=== PATIENT | female | born 1960 | race African-American/Black ===

== ENCOUNTER 2019-08-20 10:25 | Inpatient (IN) ==
[2019-08-20 10:38] LABS: ALLEN TEST YES; BE -8.8 mmoll (-3.0-3.0); BLOOD TYPE ARTERIAL; HCO3-(ACT) 17.8 mmoll (20.0-26.0); METHB 0.8 % (0.0-1.5); O2(CT) 19.1 mL/dL (15.0-23.0); PCO2(98.6) 48 mmHg (35-45); PO2(98.6) 84 mmHg (60-100); SAMPLE BLOOD; SAO2 96.5 % (95.0-100.0); THB 15.2 g/dL (11.5-17.4); pH(98.6) 7.21 (7.35-7.45)
[2019-08-20 10:41] LABS: MODALITY VENTIMASK
[2019-08-20 10:42] LABS: O2HB 89.3 % (95.0-99.0)
[2019-08-20] MEDS ORDERED: ATIVAN ONE (10:42)
[2019-08-20] MEDS ORDERED: ATIVAN IV ONE ×2 (10:42→10:51)
--- NOTE | 2019-08-20 10:51 | EKG Report ---
Test Performed on : 08/20/2019 10:34:20 AM Test Reason : sob Blood Pressure : / mmHG Vent. Rate : 126 BPM Atrial Rate : 126 BPM P-R Int : 150 ms QRS Dur : 074 ms QT Int : 314 ms P-R-T Axes : 074 -04 063 degrees QTc Int : 454 ms Sinus tachycardia. Possible Left atrial enlargement Anteroseptal infarct , age undetermined Abnormal ECG No previous ECGs available Unconfirmed Result
--- NOTE | 2019-08-20 11:14 | Diag Imaging Result Doc PS360 ---
EXAM: CHEST-1 VIEW INDICATION: sob TECHNIQUE: One view COMPARISON: None. FINDINGS: There are bilateral interstitial infiltrates suggesting pulmonary edema. There is a more dense airspace infiltrate at the right lung base. Superimposed pneumonia here cannot be excluded. There is no significant pleural fluid collection or pneumothorax. There is cardiomegaly and pulmonary venous congestion. IMPRESSION: Pulmonary edema and pulmonary venous congestion. Superimposed pneumonia at the right lung base is possible in the right clinical scenario. Electronically signed by David Hollis 08/20/2019 11:11 AM
[2019-08-20] MEDS ORDERED: XOPENEX NEB ONE (11:22)
[2019-08-20] MEDS ORDERED: LABETALOL IV ONE ×2 (11:28→13:36)
[2019-08-20 12:14] LABS: BASO# 0.12 X1000 (0.0-0.2); BASO% 0.7 % (0.0-0.8); EOS# 1.28 X1000 (0.0-0.7); EOS% 7.1 % (0.0-10.0); HEMATOCRIT 50.4 % (37.0-47.0); IMM GRAN# 0.08 X1000 (0.0-0.04); IMM GRAN% 0.4 % (0.0-0.5); LYMPH# 5.37 X1000 (1.2-3.4); LYMPH% 29.8 % (20.5-51.1); MCH 30.5 PG (27-31); MCHC 31.7 g/dL (33-37); MCV 96.2 FL (81-99); MONO# 1.24 X1000 (0.11-0.59); MONO% 6.9 % (1.7-9.3); MPV 11.8 FL (7.4-10.4); NEUT# 9.91 X1000 (1.4-6.5); NEUT% 55.1 % (42.2-75.2); PLT 285 X1000 (130-400); RBC 5.24 XMIL (4.2-5.4); RDW 14.1 % (11.5-14.5)
[2019-08-20 12:27] LABS: INR 0.88
[2019-08-20 12:28] LABS: PTT 28.6 Seconds (22.3-41.8)
[2019-08-20 12:33] LABS: URINE SOURCE CATH
[2019-08-20 12:38] LABS: BILIRUBIN URINE NEGATIVE (NEGATIVE); BLOOD URINE SMALL (NEGATIVE); COLOR YELLOW; GLUCOSE URINE 100 mg/dL (NEGATIVE); KETONE URINE NEGATIVE (NEGATIVE); LEUKOCYTES URINE LARGE (NEGATIVE); NITRITE URINE NEGATIVE (NEGATIVE); PROTEIN URINE 100 mg/dL (NEGATIVE); SP GRAVITY URINE 1.008; TURBIDITY URINE HAZY (CLEAR); UR EPITHELIAL CELLS <10 /HPF (<10); URINE BACTERIA NEGATIVE /HPF; URINE RBC <10 /HPF (<10); URINE WBC TNTC /HPF (<10); UROBILINOGEN URINE NORMAL (NORMAL)
[2019-08-20 12:59] LABS: UR AMPHETAMINES QUAL NONE DETECTED (NONE DETECT); UR BARBITUATES QUAL NONE DETECTED (NONE DETECT); UR BENZODIAZEPIN QUAL NONE DETECTED (NONE DETECT); UR CANNABINOIDS QUAL NONE DETECTED (NONE DETECT); UR COCAINE QUAL PRESUMPTIVE POSITIVE (NONE DETECT); UR METHADONE QUAL NONE DETECTED (NONE DETECT); UR OPIATES QUAL NONE DETECTED (NONE DETECT); UR OXYCODONE QUAL NONE DETECTED (NONE DETECT); UR PCP QUAL NONE DETECTED (NONE DETECT)
[2019-08-20 12:59] LABS: ALB/GLOB RATIO 1.2; ALBUMIN 5.1 g/dL (3.5-5.0); CALCIUM 10.2 mg/dL (8.8-10.2); CREATININE 8.2 mg/dL (0.5-0.9); POTASSIUM 6.1 mmol/L (3.5-5.1); TOTAL BILIRUBIN 0.43 mg/dL (0.20-1.00); TOTAL PROTEIN 9.3 g/dL (6.3-8.3)
[2019-08-20] MEDS ORDERED: NITROGLYCERIN TOP ONE ×2 (13:36→23:47)
[2019-08-20] MEDS ORDERED: SODIUM BICARBONATE 8.4% IV ONE (13:42)
[2019-08-20] MEDS ORDERED: D50W SYRINGE IV ONE (13:42)
[2019-08-20] MEDS ORDERED: HUMULIN R IV ONE (13:42)
[2019-08-20] MEDS ORDERED: KAYEXALATE PO ONE (13:42)
[2019-08-20] MEDS ORDERED: CALCIUM GLUCONATE 1 GM in NS 50 ML IV ONE (13:43)
[2019-08-20] MEDS ORDERED: LEVAQUIN 500 MG/D5W 500 MG/100 ML IVPB IV ONE (13:50)
--- NOTE | 2019-08-20 13:59 | PROVIDER DOCUMENTATION ---
This chart was entered by Arline Thornton Scribe, acting as scribe for Sebas Frank MD. 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 Pt does reports she had dialysis on Tuesday. Pt is poor hx & VERY anxious upon exam. Quality of Pain: reports: tightness Severity in ED: reports: moderate, severe Onset/Duration: reports: just prior to arrival Timing: reports: still present Cough Quality/Degree: reports: mild Current Respiratory Medication Therapy: Initiated see nurses note Associated Symptoms: reports: cough, hyperventilating, lightheadedness, shortness of breath, short of breath, wheezing Similar Symptoms Previously?: No Recently seen or treated by another doctor?: No Review of Systems - Adult - REVIEW OF SYSTEMS - ADULT Constitutional: reports: see HPI. denies: chills, fever, fatique Eyes: reports: no symptoms reported Ears, Nose, Mouth & Throat: reports: no symptoms reported Cardiovascular: reports: see HPI, irregular heart rate. denies: chest pain Respiratory: reports: see HPI, cough, shortness of breath, wheezing Gastrointestinal: reports: no symptoms reported Genitourinary: reports: no symptoms reported Musculoskeletal: reports: no symptoms reported Integumentary: reports: no symptoms reported Neurological: reports: see HPI, dizziness/vertigo Psychiatric: reports: no symptoms reported Endocrine: reports: no symptoms reported Hematologic/Lymphatic: reports: no symptoms reported Allergic/Immunologic: reports: no symptoms reported All Other Systems: Reviewed and Negative Past History - Adult - PAST MEDICAL HISTORY-ADULT Review of Records: reports: Nursing Assessment Review, Medications Reviewed, Social history reviewed & non-contributory. Major Childhood Illnesses: reports: denies history Cardiovascular: reports: denies history Respiratory: reports: denies history Gastrointestinal: reports: denies history Obstetrical/Gynecological: reports: denies history Genitourinary: reports: denies history Musculoskeletal: reports: denies history Neurological: reports: denies history Endocrine/Immune: reports: denies history Other Conditions: reports: denies history - IMMUNIZATION STATUS Childhood Immunizations: See Nurse Assessment Flu Vaccine: See Nurse Assessment - FAMILY HISTORY Family History: reviewed, not pertinent - SOCIAL HISTORY Substance Use: cocaine Physical Exam-General - PHYSICAL EXAM-ADULT Initial Vital Signs Reviewed: Yes - CONSTITUTIONAL General Appearance: alert, moderate distress, thin, anxious. negative: combative - EYES Eyes: PERRL/EOMI, pink conjunctivae. negative: photophobia - HEAD, EARS, NOSE, MOUTH & THROAT HENMT: normocephalic/atraumatic, moist mucous membranes. negative: angioedema - NECK Neck: supple, normal inspection - RESPIRATORY Respiratory: chest non-tender, accessory muscle use, crackles (fine on the right), retractions - CARDIOVASCULAR Cardiovascular: normal peripheral pulses, tachycardia. negative: bradycardia - GASTROINTESTINAL (ABDOMEN) Abdominal Exam: non tender, soft. negative: rebound - MUSCULOSKELETAL Extremity: normal inspection, normal capillary refill. negative: deformity - SKIN Integumentary: diaphoresis, other (fistula in left upper arm). negative: jaundice, rash - PSYCHIATRIC Psych/Mental Status: oriented x 3, anxious - HEART Score HEART Score: History: Moderately Suspicious HEART Score: ECG: Non-Specific Repolarization Disturbance/LBBB/PM HEART Score: Age: 45-65 Years HEART Score: Risk Factors for Atherosclerotic Disease: 1 or 2 Risk Factors HEART Score: Troponin: 1-3x Normal Limit Total HEART Score:: 5 Progress - PLAN OF CARE/RESULTS Progress/Plan/Lab Results: Vital Signs - 8 hr 08/20/19 10:45 08/20/19 11:39 Temperature 96.9 F L Pulse Rate 128 H 132 H Respiratory Rate 34 H 36 H Blood Pressure 286/182 252/138 O2 Sat by Pulse Oximetry 100 100 08/20/19 11:40 Influenza Screen - Final Nasopharyngeal Laboratory Results - last 24 hr 08/20/19 08/20/19 08/20/19 10:30 11:07 11:07 WBC 18.00 H RBC 5.24 Hgb 16.0 Hct 50.4 H MCV 96.2 MCH 30.5 MCHC 31.7 L RDW Std Deviation 14.1 Plt Count 285 MPV 11.8 H Immature Gran % (Auto) 0.4 Neut % (Auto) 55.1 Lymph % (Auto) 29.8 [place] % (Auto) 6.9 Eos % (Auto) 7.1 Baso % (Auto) 0.7 Immature Gran # (Auto) 0.08 H Neut # (Auto) 9.91 H Lymph # (Auto) 5.37 H [place] # (Auto) 1.24 H Eos # (Auto) 1.28 H Baso # (Auto) 0.12 PT INR PTT (Actin FS) Specimen Type ARTERIAL Sample Site R RADIAL pH 7.21 L pCO2 48 H pO2 84 HCO3 17.8 L Base Excess -8.8 L Oxyhemoglobin 89.3 L* ABG O2 Sat (Calculated) 19.1 ABG O2 Saturation 96.5 ABG Carboxyhemoglobin 6.70 H* ABG Methemoglobin 0.8 Diego Test YES A-a O2 Difference 141.0 Total Hemoglobin 15.2 Lactate 2.20 Liter Flow 7.0 Blood Gas Modality VENTIMASK FiO2 % 40.0 Sodium 140 Potassium 6.1 H* Chloride 101 Carbon Dioxide 18 L Anion Gap 21 BUN 47 H Creatinine 8.2 H Estimated GFR/1.73 m2 5 BUN/Creatinine Ratio 6 Glucose 144 H Calculated Osmolality 294 Calcium 10.2 Total Bilirubin 0.43 AST 65 H ALT 27 Alkaline Phosphatase 125 H Creatine Kinase Troponin T High Sens Qca-C-[id number] Pept Total Protein 9.3 H Albumin 5.1 H Globulin 4.2 Albumin/Globulin Ratio 1.2 Urine Source Urine Color Urine Turbidity Urine pH Ur Specific [place] Urine Protein Ur Glucose (Stick) Ur Ketones (Stick) Urine Blood Urine Nitrite Urine Bilirubin Urobilinogen Dipstick Urine Leukocytes Urine WBC (Auto) Urine RBC (Auto) U Epithel Cells (Auto) Urine Bacteria (Auto) Urine Opiates Screen Ur Oxycodone Screen Ur Methadone, Qual Ur Barbiturates Screen Ur Phencyclidine Scrn Ur Amphetamines Screen U Benzodiazepines Scrn Urine Cocaine Screen U Cannabinoids Screen 08/20/19 08/20/19 08/20/19 11:07 11:07 11:07 WBC RBC Hgb Hct MCV MCH MCHC RDW Std Deviation Plt Count MPV Immature Gran % (Auto) Neut % (Auto) Lymph % (Auto) [place] % (Auto) Eos % (Auto) Baso % (Auto) Immature Gran # (Auto) Neut # (Auto) Lymph # (Auto) [place] # (Auto) Eos # (Auto) Baso # (Auto) PT INR PTT (Actin FS) Specimen Type Sample Site pH pCO2 pO2 HCO3 Base Excess Oxyhemoglobin ABG O2 Sat (Calculated) ABG O2 Saturation ABG Carboxyhemoglobin ABG Methemoglobin Diego Test A-a O2 Difference Total Hemoglobin Lactate Liter Flow Blood Gas Modality FiO2 % Sodium Potassium Chloride Carbon Dioxide Anion Gap BUN Creatinine Estimated GFR/1.73 m2 BUN/Creatinine Ratio Glucose Calculated Osmolality Calcium Total Bilirubin AST ALT Alkaline Phosphatase Creatine Kinase 141 Troponin T High Sens 142 H* Sbx-X-Hjjriimveaq Pept > 68458 H Total Protein Albumin Globulin Albumin/Globulin Ratio Urine Source Urine Color Urine Turbidity Urine pH Ur Specific [place] Urine Protein Ur Glucose (Stick) Ur Ketones (Stick) Urine Blood Urine Nitrite Urine Bilirubin Urobilinogen Dipstick Urine Leukocytes Urine WBC (Auto) Urine RBC (Auto) U Epithel Cells (Auto) Urine Bacteria (Auto) Urine Opiates Screen Ur Oxycodone Screen Ur Methadone, Qual Ur Barbiturates Screen Ur Phencyclidine Scrn Ur Amphetamines Screen U Benzodiazepines Scrn Urine Cocaine Screen U Cannabinoids Screen 08/20/19 08/20/19 08/20/19 11:07 12:20 12:20 WBC RBC Hgb Hct MCV MCH MCHC RDW Std Deviation Plt Count MPV Immature Gran % (Auto) Neut % (Auto) Lymph % (Auto) [place] % (Auto) Eos % (Auto) Baso % (Auto) Immature Gran # (Auto) Neut # (Auto) Lymph # (Auto) [place] # (Auto) Eos # (Auto) Baso # (Auto) PT 12.0 INR 0.88 PTT (Actin FS) 28.6 Specimen Type Sample Site pH pCO2 pO2 HCO3 Base Excess Oxyhemoglobin ABG O2 Sat (Calculated) ABG O2 Saturation ABG Carboxyhemoglobin ABG Methemoglobin Diego Test A-a O2 Difference Total Hemoglobin Lactate Liter Flow Blood Gas Modality FiO2 % Sodium Potassium Chloride Carbon Dioxide Anion Gap BUN Creatinine Estimated GFR/1.73 m2 BUN/Creatinine Ratio Glucose Calculated Osmolality Calcium Total Bilirubin AST ALT Alkaline Phosphatase Creatine Kinase Troponin T High Sens [id number]-[id number] Pept Total Protein Albumin Globulin Albumin/Globulin Ratio Urine Source CATH Urine Color YELLOW Urine Turbidity HAZY Urine pH 8.0 Ur Specific [place] 1.008 Urine Protein 100 A Ur Glucose (Stick) 100 A Ur Ketones (Stick) NEGATIVE Urine Blood SMALL A Urine Nitrite NEGATIVE Urine Bilirubin NEGATIVE Urobilinogen Dipstick NORMAL Urine Leukocytes LARGE A Urine WBC (Auto) TNTC A Urine RBC (Auto) <10 U Epithel Cells (Auto) <10 Urine Bacteria (Auto) NEGATIVE Urine Opiates Screen NONE DETECTED Ur Oxycodone Screen NONE DETECTED Ur Methadone, Qual NONE DETECTED Ur Barbiturates Screen NONE DETECTED Ur Phencyclidine Scrn NONE DETECTED Ur Amphetamines Screen NONE DETECTED U Benzodiazepines Scrn NONE DETECTED Urine Cocaine Screen PRESUMPTIVE POSITIVE A U Cannabinoids Screen NONE DETECTED Orders Category Date Time Status Cardiac Monitoring DIRECTED Care 08/20/19 11:57 Active IV Insertion ORDERED Care 08/20/19 11:57 Completed Notify MD of + Sepsis Screen NOW Care 08/20/19 11:57 Active Notify Physician As Ordered Care 08/20/19 11:57 Active CHEST-1 VIEW [RAD] Stat Exams 08/20/19 10:41 Completed ABG [RESP] Routine Lab 08/20/19 10:30 Completed BLOOD CULTURE [BLDCUL] Stat Lab 08/20/19 11:09 Results BNP [PRO B-NATRIURETIC PEPTIDE] Stat Lab 08/20/19 11:07 Completed CBC WITH ELECTRONIC DIFF [HEME] Stat Lab 08/20/19 11:07 Completed CK PROFILE [SP CHEM] Stat Lab 08/20/19 11:07 Completed COMPREHENSIVE METABOLIC PANEL [CHEM] Stat Lab 08/20/19 11:07 Completed INFLUENZA SCREEN A/B Stat Lab 08/20/19 11:40 Completed LACTATE, PLASMA [CHEM] Lab 08/20/19 15:00 Uncollected LACTATE, PLASMA [CHEM] Lab 08/20/19 18:00 Uncollected LACTATE, PLASMA [CHEM] Q3H Lab 08/20/19 11:59 Ordered PROTIME WITH INR [COAG] Stat Lab 08/20/19 11:07 Completed PTT [COAG] Stat Lab 08/20/19 11:07 Completed TROPONIN T HIGH SENSITIVITY Stat Lab 08/20/19 11:07 Completed URINALYSIS W/POSS RFLX CULT [URINALYSIS] Stat Lab 08/20/19 12:20 Completed URINE CULTURE [RM] Routine Lab 08/20/19 12:20 Received URINE DRUG SCREEN Stat Lab 08/20/19 12:20 Completed Calcium Gluconate 1 gm Med 08/20/19 13:43 Active 0.9% Sodium Chloride Inj [Ns] 50 ml IV NOW Dextrose 50% Syringe [D50w Syringe] Med 08/20/19 13:42 Discontinued 50 ml IV NOW ONE Insulin Human Regular [Humulin R] Med 08/20/19 13:42 Discontinued 10 unit IV NOW ONE Labetalol Med 08/20/19 11:28 Discontinued 10 mg IV NOW ONE Labetalol Med 08/20/19 13:36 Discontinued 10 mg IV NOW ONE Levalbuterol Neb [Xopenex Neb] Med 08/20/19 11:22 Discontinued 1.25 mg .ROUTE .STK-MED ONE Levofloxacin 500 mg/D5w [Levaquin 500 mg/D5w] Med 08/20/19 13:50 Active 500 mg in 100 ml IV NOW Lorazepam [Ativan] Med 08/20/19 10:42 Discontinued 1 mg IV NOW ONE Lorazepam [Ativan] Med 08/20/19 10:51 Discontinued 1 mg IV NOW ONE Lorazepam [Ativan] Med 08/20/19 10:42 Discontinued 2 mg .ROUTE .STK-MED ONE Nitroglycerin Med 08/20/19 13:36 Discontinued 1 inch TOP NOW ONE Sodium Bicarbonate 8.4% Med 08/20/19 13:42 Discontinued 50 meq IV NOW ONE Sodium Polystyrene [Kayexalate] Med 08/20/19 13:42 Discontinued 30 gm PO NOW ONE BIPAP Stat Oth 08/20/19 11:20 Active Oxygen Device Stat Oth 08/20/19 11:57 Active EKG [EKG] Stat Ther 08/20/19 10:41 Draft Result Diagrams: 08/20/19 11:07 08/20/19 11:07 - EKG 1 Time of EKG reading by physician:: 10:40 EKG Read and Signed by:: Sebas Frank EKG Interpretation (*Must complete 3 of following elements*): Abnormal (possible left atrial enlargement; anteroseptal infarct, age undetermined) Rate: 126 Rhythm: Sinus Tachy QRS: normal [place] Interval: normal - XRAY 1 XRAY: Bilateral XRAY Study: Chest Impression: See EMR Report (IMPRESSION: Pulmonary edema and pulmonary venous congestion. Superimposed pneumonia at the right lung base is possible in the right clinical scenario. Electronically signed by David Hollis 08/20/2019 11:11 AM) - CONSULTS/PCP/HOSPITALIST Notification #1 *Consult/PCP/Hospitalist*: Lucita/[employer] Time Discussed: 13:53 Consult Disposition: Admit (Dr. Brand) Departure - Departure Date of Disposition Decision: 08/20/19 Time of Disposition Decision: 13:53 DIAGNOSIS: CHF (congestive heart failure), SOB (shortness of breath), Respiratory distress, Cocaine substance abuse, Pneumonia, Hyperkalemia, Chronic renal failure, Elevated troponin Disposition: ADMITTED INPATIENT 09 Certified Medical Emergency: Emergent Condition: Stable Referrals and Follow-Ups: None,PCP [Primary Care Provider] - - Critical Care Note This patient required my direct & personal management of CC.: Yes Total Time (mins): 120 Critical Care Statement: This patient required my direct personal management to treat or rule out processes, the absence of which, could potentiallly result in sudden, clinically significant life or limb threatening deterioration. Attestation - Physician/ TALITA Attestation Patient care was provided by Advanced Practice Provider:: No The physician spent face to face time with patient:: Yes Advanced Practice Provider documentation review:: Supervising physician onsite and consulted in the evaluation and care of this patient. The physician did have a face to face encounter with the patient. This chart was documented by the indicated scribe, (Arline Thornton, Darrian) and accurately reflects the services I performed and decisions made by me, Sebas Frank MD, as attested by the provider's signature.
[2019-08-20] MEDS ORDERED: NS 2,000 ML MISC PRN (17:28)
[2019-08-20] MEDS ORDERED: TIGHT: 0.2 ML/HR FOR DIALYSIS MISC PRN (17:28)
--- NOTE | 2019-08-20 19:03 | HISTORY AND PHYSICAL ---
PRIMARY CARE PHYSICIAN: Unknown. CHIEF COMPLAINT: Shortness of breath, wheezing, cough and lightheaded prior to arrival after using cocaine stating " I can't breathe" over and over. Was able to report that she had dialysis this past Tuesday. HISTORY OF PRESENTING ILLNESS: This is a 59-year-old female who presented to [facility] via EMS after she was [place] station. Had admitted to smoking cocaine this morning and reports that when her shortness of breath started, she kept repeating I cannot breathe over and over, was able to state that she was on dialysis and had her last treatment this past Tuesday. She is a very poor historian and on arrival was very anxious, was given some Ativan and has calmed down significantly. She also had a blood pressure of 286/182 on arrival. She was given labetalol 10 mg IV x1 two separate doses. She was also noted on her laboratory data to have an elevated potassium at 6.1, her BUN was 47, creatinine was 8.2, proBNP was greater than 35,000. In the emergency room she was given Kayexalate 30 g p.o. x1, sodium bicarbonate 50 mEq IV x1, D 50 syringe IV x1, calcium gluconate 1 gram IV x1 and Xopenex nebulizer 1.25 mg x1 and she will be admitted to the PVC unit for further evaluation and treatment. PAST MEDICAL HISTORY: End-stage renal disease with dialysis on Tuesday, and Tuesday. Unable to obtain any further information there. PAST SURGICAL HISTORY: She has a left fistula placement x2 with a repair. FAMILY HISTORY: Unable to obtain. SOCIAL HISTORY: She smokes cigarettes but unknown how much. She did have a pack of cigarettes on her possession when she arrived. She denied any ETOH use. Her drug screen was positive for cocaine and she did admit to using cocaine earlier this morning. Unknown if any other illicit drugs. ALLERGIES: She has no known drug allergies. HOME MEDICATIONS: Are unknown at this time. LABORATORY DATA: Showed a white blood cell count of 18, hemoglobin 16, hematocrit 50.4, platelets 285,000, PT and INR of 12 and 0.88. ABG with a pH of 7.21, pCO2 of 48, PO2 84, bicarb 17.8 this was on a Ventimask with an FiO2 of 40%. Sodium 140, potassium 6.1, chloride 101, CO2 18, BUN of 47, creatinine 8.2, glucose 144, troponin T high sensitivity of 142, proBNP of greater than 35,000. Urinalysis showed negative nitrites, large leukocytes, negative bacteria. Urine drug screen was presumptive positive for cocaine. Chest x-ray showed pulmonary edema and pulmonary venous congestion, superimposed pneumonia at the right lung base was also noted in the right clinical scenario. EKG showed sinus tachycardia at 126. REVIEW OF SYSTEMS: She was positive for fever, chills, nausea, cough but was a poor historian and that is all that she would give us on a review of systems. PHYSICAL EXAMINATION: On arrival she had a temperature of 96.9 degrees, pulse 128, respirations 34, blood pressure 286/182, saturating 100% on 6 L mask. GENERAL: This is a 59-year-old female who is lying in the bed unable to answer all questions appropriately. She has moments of clarity but then goes back to being confused or unable to answer questions. HEENT: Normocephalic, atraumatic. Normal ENT inspection. Oropharynx and nares were clear. Pupils are equal, round, reactive to light, accommodation. Extraocular movements are intact. NECK: Normal inspection, normal range of motion. LUNGS: Diminished breath sounds bilaterally. Equal lung expansion, chest wall movement. HEART: Tachycardia noted but no murmurs, rubs or gallops. ABDOMEN: Soft, nontender, nondistended. Bowel sounds are present x4 quadrants. MUSCULOSKELETAL: She had 5/5 strength x4 extremities. NEUROLOGICAL: The cranial nerves 2-12 appear grossly intact. ASSESSMENT: 1. A right lower lobe pneumonia. 2. Hyperkalemia. 3. Uncontrolled hypertension. 4. Pulmonary edema with an elevated proBNP most likely congestive heart failure exacerbation. 5. Uncontrolled hypertension. 6. Cocaine abuse. 7. End-stage renal disease with dialysis on Tuesday, , Tuesday OUR PLAN: She will be admitted to the PVC unit, placed on telemetry, O2 per protocol. We will make an attempt to update and confirm home medications as she becomes more clear. We will consult Nephrology. Place on incentive spirometry, apply SCDs for DVT prophylaxis. We will give Ativan 1 mg IV q.4 hours p.r.n. for agitation, Levaquin 500 mg IV q.24, DuoNeb q.4 hours, hydralazine 10 mg IV q.4 hours p.r.n. for systolic blood pressure greater than 190 diastolic greater than 100, Lasix 40 mg IV q.12. Her hyperkalemia has been addressed as previously noted. Will check an echocardiogram in the a.m. and further orders after seen by attending. Dictated by ROSMERY Buckley for Judd Paez MD cc: ROSMERY Buckley MD
[2019-08-20] MEDS ORDERED: TYLENOL PO PRN (20:29)
[2019-08-20] MEDS ORDERED: ZOFRAN IV PRN (20:29)
[2019-08-20] MEDS: LASIX IV SCH (20:49)
[2019-08-20] MEDS: ATIVAN IV PRN (20:49)
--- NOTE | 2019-08-20 21:35 | HISTORY AND PHYSICAL ---
ADDENDUM: I have seen and examined Ms. Daley today. She was actually going through a dialysis session. Ms. Daley is a 59-year-old female who has end-stage renal disease, on hemodialysis Tuesdays, , and Saturdays. She said she had a full dose session on Tuesday last week. However, since this morning, she woke up with shortness of breath. She also refers to have used cocaine. Upon presenting to the emergency department, she was found to be remarkably hypertensive and hypoxemic. She was saturating 100%, but on 6 L. Her potassium was found to be at 6.1 with EKG changes. I have also reviewed her imaging studies. A chest x-ray did show pulmonary edema and pulmonary venous congestion. Superimposed pneumonia at the right base is possible in the right scenario. EKG showed normal sinus rhythm with peaked T-waves. ASSESSMENT: 1. Dyspnea, secondary to acute pulmonary edema, presumably from acute congestive heart failure. 2. Severe hypertension, with possible hypertensive urgency/emergency on admission. 3. Hyperkalemia, with electrocardiogram changes. 4. End-stage renal disease, on hemodialysis Tuesdays, , and Saturdays. 5. Cocaine use. 6. Leukocytosis, with infiltrate in the right lower lobe on imaging studies, which would be concerning for possible pneumonia. Patient has been started on antimicrobial coverage. Please refer to the details of the History and Physical that has been dictated by the LEASING SALES CONSULTANT in the chart. I have discussed the plan with her. cc: Judd Paez MD
[2019-08-20] MEDS: APRESOLINE IV PRN (22:07)
[2019-08-20] MEDS: DUONEB (A & A) INH SCH (22:58)
[2019-08-20] MEDS ORDERED: APRESOLINE IV ONE (23:48)
[2019-08-21] MEDS: DUONEB (A & A) INH SCH ×7 (00:09→23:55)
[2019-08-21] MEDS: LASIX IV SCH ×2 (04:17→14:29)
[2019-08-21] MEDS: APRESOLINE IV PRN ×3 (04:17→17:58)
[2019-08-21] MEDS ORDERED: HEPARIN IV PRN (06:35)
[2019-08-21] MEDS ORDERED: TIGHT: 0.2 ML/HR FOR DIALYSIS MISC PRN (06:35)
[2019-08-21] MEDS ORDERED: NS 2,000 ML MISC PRN (06:35)
[2019-08-21 06:56] LABS: BASO# 0.04 X1000 (0.0-0.2); BASO% 0.3 % (0.0-0.8); EOS# 0.36 X1000 (0.0-0.7); EOS% 3.1 % (0.0-10.0); HEMATOCRIT 37.8 % (37.0-47.0); IMM GRAN# 0.02 X1000 (0.0-0.04); IMM GRAN% 0.2 % (0.0-0.5); LYMPH# 1.48 X1000 (1.2-3.4); LYMPH% 12.6 % (20.5-51.1); MCH 30.5 PG (27-31); MCHC 31.7 g/dL (33-37); MCV 95.9 FL (81-99); MONO# 1.24 X1000 (0.11-0.59); MONO% 10.6 % (1.7-9.3); NEUT% 73.2 % (42.2-75.2); PLT 207 X1000 (130-400); RBC 3.94 XMIL (4.2-5.4); RDW 13.8 % (11.5-14.5); WBC 11.74 X1000 (4.8-10.8)
[2019-08-21 08:06] LABS: CALCIUM 9.1 mg/dL (8.8-10.2); CREATININE 6.6 mg/dL (0.5-0.9); POTASSIUM 4.9 mmol/L (3.5-5.1)
--- NOTE | 2019-08-21 12:28 | PROVIDER PROGRESS NOTE ---
Progress Note Chief complaint: I was short of breath so I came in. HPI: Mrs. Daley is a 59-year-old -[place] female with a past medical history of end stage renal disease with dialysis at [facility] on Tuesday, , and Tuesday. Her last treatment was this past Tuesday. Other medical history includes hypertension and COPD. She was picked up by EMS at a gas station after using cocaine. She says she has been short of breath for 2 days and was hoping the cocaine would help. When she arrived to the hospital she was hypertensive and given IV labetalol 10mg x2. Her Potassium was 6.1 and Creatinine 8.2. She was given kayexalate 30g, D50 syringe x 1, and nebulizer treatments. She was placed on renal replacement therapy with a 2K bath for ultrafiltration to outpatient dry weight and was admitted to [facility]. She denies any chest pain, N/V, fever, chills, and decreased appetite. She has not been around anyone diagnosed with the flu. She does admit to shortness of breath that is better since admission but still present. She admits to a non-productive cough as well. She is not on home oxygen but is requiring 2L nasal cannula with a 98% oxygen saturation. Past medical history: end stage renal disease with [facility] on TTS, hypertension, and COPD. Past surgical history: left upper arm fistula replacement with repair. Social history: Lives in a family house, admits to using cocaine, smokes half a pack of cigarettes a day, and occasionally drinks beer/liquor. Family history: Father was a dialysis patient, Mother had a myocardial infarction and cancer of unknown area. Allergies: no known allergies Home medications: none Review of systems: 14 point review of systems complete. All pertinent positives listed above in the HPI. Physical Exam: temperature 98.1, pulse 86, respirations 19, blood pressure 175/88, O2 sat 100% on 2 L nasal cannula. General: frail -[place] female ambulating in room with some shortness of breath. HEENT: Normocephalic, atraumatic. Moist mucous membranes. Pupils equal and reactive. Trachea midline. Skin: warm and dry Neck: supple, 6cm JVD observed in upright position, Cardiovascular: S1S2, regular rate and rhythm, no murmurs or gallops. Respiratory: Coarse upper lobes with diminished bases posteriorly. Abdomen: soft, nontender, nondistended. Bowel sounds active. : non inspected Extremities: no clubbing, cyanosis, or edema noted. Neurological: alert and oriented to person place and time. Labs: WBC 11.74, hemoglobin 12, hematocrit 37.8, count to 107, sodium 136, potassium 4.9, four at 95, carbon dioxide 26, BUN 35, creatinine 6.6. Intake 60, output 486. Imaging: chest X-ray impression pulmonary edema and pulmonary venous congestion. Superimpose pneumonia at the right one face as possible in the right clinical scenario. Assessment and plan: Chronic kidney disease 5D. Due to her fluid volume status and keeping her on her TTS schedule we will dialyze her again today with a 2K bath for ultrafiltration to outpatient dry weight. Blood pressure. Elevated. Not on any home medications. Likely related to volume status. PRN apresoline in place. Observe. Fluid volume. Expanded. HD and lasix in place. Anemia. Stable. Electrolytes and acid base balance. Stable. Nutrition. Adequate. Medication review. IV levaquin-schedule to give after dialysis?
[2019-08-21] MEDS ORDERED: LEVAQUIN 500 MG/D5W 500 MG/100 ML IVPB IV SCH (14:00)
[2019-08-21 15:19] LABS: HEPATITIS PROFILE ACUTE SEE COMMENTS
--- NOTE | 2019-08-21 19:54 | PROGRESS NOTE ---
DATE: 08/21/2019 SUBJECTIVE: The patient has no major complaints. She is sitting in bed, seems comfortable. OBJECTIVE: Vital signs: Blood pressure 155/72, heart rate 91, respiratory 16, temperature 98.1 degrees 99% on 2 L. Cardiovascular: Regular rate and rhythm. Pulmonary: She had bronchial breath sounds at the right base. GI: Soft, nontender, nondistended. Bowel sounds are positive. LABORATORY DATA: White count is down to 11. Hemoglobin and hematocrit 12 and 37, platelets 207,000, creatinine 6.6. PROBLEM LIST: 1. Volume overload, unclear etiology: Perhaps she had been on shorter times during her dialysis sequences. She has not missed any dialysis. 2. Hypertension. That appears to be relatively stable. We will continue to follow closely. Anticipate discharge soon once her breathing has returned back to baseline. cc: Milo Raza MD [facility]
[2019-08-21] MEDS: ATIVAN IV PRN (21:11)
[2019-08-22] MEDS: DUONEB (A & A) INH SCH ×6 (03:39→23:20)
[2019-08-22] MEDS: LASIX IV SCH ×2 (04:51→07:34)
[2019-08-22] MEDS: APRESOLINE IV PRN ×2 (04:51→12:41)
[2019-08-22 06:19] LABS: BASO# 0.07 X1000 (0.0-0.2); BASO% 0.8 % (0.0-0.8); EOS# 1.23 X1000 (0.0-0.7); EOS% 13.4 % (0.0-10.0); HEMATOCRIT 37.5 % (37.0-47.0); HEMOGLOBIN 11.9 g/dL (12.0-16.0); IMM GRAN# 0.02 X1000 (0.0-0.04); IMM GRAN% 0.2 % (0.0-0.5); LYMPH# 1.57 X1000 (1.2-3.4); LYMPH% 17.1 % (20.5-51.1); MCH 30.5 PG (27-31); MCHC 31.7 g/dL (33-37); MCV 96.2 FL (81-99); MONO# 1.13 X1000 (0.11-0.59); MONO% 12.3 % (1.7-9.3); MPV 10.9 FL (7.4-10.4); NEUT# 5.18 X1000 (1.4-6.5); NEUT% 56.2 % (42.2-75.2); PLT 186 X1000 (130-400); RDW 13.6 % (11.5-14.5)
[2019-08-22 06:49] LABS: ALBUMIN 3.6 g/dL (3.5-5.0); CALCIUM 8.7 mg/dL (8.8-10.2); CREATININE 4.5 mg/dL (0.5-0.9); PHOSPHORUS 3.3 mg/dL (2.7-4.5); POTASSIUM 3.9 mmol/L (3.5-5.1)
--- NOTE | 2019-08-22 07:38 | Diag Imaging Result Doc PS360 ---
EXAM: CHEST-2 VIEWS 08/22/2019 HISTORY: hypoxia TECHNIQUE: PA and lateral chest COMMENT: There are bilateral nipple shadows. The pulmonary opacities present on 08/20/2019 have largely resolved with a small amount of residual interstitial edema. The heart size appears smaller. There may also be some subsegmental atelectasis in the right middle lobe and left lower lobe. IMPRESSION: Improved pulmonary edema. Electronically signed by Milton Kong 08/22/2019 7:36 AM
--- NOTE | 2019-08-22 15:22 | PROVIDER PROGRESS NOTE ---
Progress Note Subjective: She voices not having to be on oxygen during the night. She denies anunuremic complaints. Objective: temperature 97.9, pulse 74, respirations 16, blood pressure 200/83, O2 sat 100% on room air. General: frail -Serbian female lying in bed with no acute distress. HEENT: Normocephalic, atraumatic. Moist mucous membranes. Pupils equal and reactive. Trachea midline. Skin: warm and dry Neck: supple, JVD observed in upright position, Cardiovascular: S1S2S4, regular rate and rhythm, no murmurs or gallops. Respiratory: Coarse upper lobes with diminished bases posteriorly. Abdomen: soft, nontender, nondistended. Bowel sounds active. : non inspected Extremities: no clubbing, cyanosis, or edema noted. Neurological: alert and oriented to person place and time. Labs: WBC 9.20, hemoglobin 11.9, hematocrit 37.5, platelet count 186, sodium 136, potassium 3.9, chloride 96, carbon dioxide 27, BUN 19, creatinine 4.5. Intake 600, output 416. Impression: Chronic kidney disease 5D. She received her routine hemodialysis treatment yesterday with a 400 mL ultrafiltration. Shes OK for discharge from our standpoint and will need to return to her hemodialysis clinic On her scheduled days. Blood pressure. Elevated. Not on any home medications. She is known to be non compliant. PRN apresoline in place. Add amlodipine. Fluid volume. Expanded. HD and lasix in place. Anemia. Stable. Electrolytes and acid base balance. Stable. Nutrition. Adequate. Medication review.
[2019-08-22] MEDS ORDERED: NORVASC PO SCH (15:30)
[2019-08-22] MEDS ORDERED: CATAPRES PO ONE (16:36)
[2019-08-22] MEDS ORDERED: LEVAQUIN 250 MG/D5W 250 MG/50 ML IVPB IV SCH (17:00)
--- NOTE | 2019-08-22 18:55 | ECHO REPORT ---
ORDER DATE: 08/21/2019 INDICATION: Patient with dyspnea. CHF. M-MODE MEASUREMENTS: Left ventricle end diastole: 4.2. Left ventricle end systole: 2.9. Posterior wall: 1.3. Interventricular septum: 1.3. Left atrium: 3.8. Aortic diameter: 3.7. SUMMARY OF 2-DIMENSIONAL IMAGIN. Left ventricular function is normal. The ejection fraction is estimated at 64%. There is moderate degree of concentric LVH. No wall motion abnormality noted. 2. The left atrium appears to be moderately enlarged. 3. The mitral valve showed mild to moderate degree of regurgitation. 4. The pulse wave Doppler of mitral inflow shows "normal" E/A ratio. 5. Tissue Doppler of septal and lateral mitral annulus averages 4 cm. There is impaired left ventricular relaxation and there is elevation of left atrial pressure based on the ratio of E/E prime greater than 20. 6. The tricuspid valve shows mild degree of regurgitation. 7. The pulmonary pressure is estimated at 48 mmHg. 8. There is mild to moderate degree of tricuspid regurgitation. 9. The pulmonic valve appears to be unremarkable. 10.I do not see evidence of pericardial effusion. 11.The inferior vena cava is somewhat enlarged. SUMMARY: The study shows 1. Normal left ventricular systolic function with moderate concentric left ventricular hypertrophy. 2. Mild to moderate degree of mitral regurgitation and tricuspid regurgitation. 3. Impaired left ventricular relaxation with elevation of the left atrial pressure. 4. Pulmonary pressure in the range of 48 mmHg. COMMENT: The appearance of this patient's myocardium is consistent with a diagnosis of end-stage renal disease. Clinical correlation is recommended. cc: MD Lucita Cohen CRNP
--- NOTE | 2019-08-22 20:35 | PROGRESS NOTE ---
DATE: 08/22/2019 SUBJECTIVE: Patient has no major complaints. OBJECTIVE: Blood pressure 178/91, heart rate of 76, respiratory rate 16, temperature 98.3 degrees.Cardiovascular: Regular rate and rhythm. Pulmonary: Bilateral breath sounds clear to auscultation. GI: Soft, nontender, nondistended. Bowel sounds are positive. LABORATORY DATA: Was really unremarkable. White count is 9, hemoglobin and hematocrit 11 and 37, platelets 186,000. Creatinine is 4.5. PROBLEM LIST: 1. Volume overload, congestive heart failure. She seems to be doing okay. Her x-ray to me looks completely improved. 2. Hypertension. We will continue some treatment and follow. We will resume her home medications. DISPOSITION: I anticipate discharge, probably tomorrow if stable. cc: Milo Raza MD
[2019-08-23] MEDS ORDERED: SUCROFERRIC OXYHYDROXIDE 500 MG PO SCH (03:17)
[2019-08-23] MEDS: DUONEB (A & A) INH SCH ×2 (03:20→07:30)
[2019-08-23] MEDS ORDERED: TIGHT: 0.2 ML/HR FOR DIALYSIS MISC PRN (06:13)
[2019-08-23] MEDS ORDERED: HEPARIN IV PRN (06:13)
[2019-08-23] MEDS ORDERED: NS 2,000 ML MISC PRN (06:13)
[2019-08-23 07:33] VITALS: BP 185/89
[2019-08-23 08:54] LABS: ALBUMIN 3.6 g/dL (3.5-5.0); CALCIUM 8.7 mg/dL (8.8-10.2); CREATININE 7.4 mg/dL (0.5-0.9); PHOSPHORUS 5.4 mg/dL (2.7-4.5); POTASSIUM 4.4 mmol/L (3.5-5.1)
[2019-08-23] MEDS ORDERED: ASPIRIN PO SCH (09:00)
[2019-08-23] MEDS ORDERED: APRESOLINE PO SCH (09:00)
[2019-08-23] MEDS ORDERED: PEPCID PO SCH (09:00)
[2019-08-23] MEDS ORDERED: COREG PO SCH (09:00)
[2019-08-23] MEDS ORDERED: CATAPRES PO SCH (09:00)
--- NOTE | 2019-08-24 11:24 | DISCHARGE SUMMARY ---
ADMISSION DATE: 08/20/2019 DISCHARGE DATE: 08/23/2019 DISCHARGE DIAGNOSES: 1. Accelerated hypertension, hypertensive emergency. 2. End-stage renal. HISTORY: Briefly, the patient is a 59-year-old admitted by Dr. Paez for shortness of breath. She had pulmonary edema and elevated proBNP. She was placed on diuretics empirically antibiotics, and slowly improved. She did improve somewhat. Her echocardiogram showed an EF of 64%, moderate concentric left ventricular hypertrophy. Overall, improved so recommend she could go home and return to her regularly scheduled hemodialysis. Blood pressures, she was not compliant with. Blood pressure medications of hydralazine 50 t.i.d., aspirin 81 daily, Coreg 3.125 b.i.d., clonidine 0.1 b.i.d., Pepcid 20 b.i.d., and sucralfate 500 t.i.d. She will follow up with her regular physician. She did have some issues, but did not have dialysis the day of discharge. cc: Milo Raza MD
== END 2019-08-23 11:42 | disposition home or self-care (01) | DRG 871 ==
LOC: ED 10:25 → SUATTDRO 19:55 → 2N 19:55 → 3N 08-23 06:30
PROVIDERS: ATTEND Internal Medicine